=== PATIENT | female | born 1935 | race Caucasian/White ===

== ENCOUNTER → 2020-07-18 | Outpatient (CLI) | payer MEDICARE ==
[2020-07-18 16:06] LABS: BASO # 0.1 (0.0-0.2); BASO % 0.5 % (0.0-2.0); EOS # 0.7 (0.0-0.7); EOS % 6.6 % (0-4.0); GRAN # 6.6 (1.4-6.5); GRAN % 66.6 % (42.2-75.2); HEMATOCRIT 38.8 % (37.0-47.0); HEMOGLOBIN 12.4 g/dl (12.5-16.0); LYMPH # 1.8 (1.2-3.4); LYMPH % 17.7 % (20.0-51.0); MEAN CELL VOLUME 88 fl (80.0-100.0); MEAN CORPUSCULAR HEMOGLOBIN 28 pg (27.0-31.0); MEAN CORPUSCULAR HGB CONC 32 g/dl (33.0-37.0); MEAN PLATELET VOLUME 9.9 fl (7.4-10.4); MONO # 0.8 (0.1-0.6); MONO % 7.9 % (1.7-9.3); PLATELET COUNT 489 K/mm3 (130-400); RED BLOOD COUNT 4.39 M/mm3 (4.10-5.30); REDCELL DISTRIBUTION WIDTH-CV 15.2 % (11.5-14.5)
== END ==
LOC: ZCOL.LAB 15:51
PROVIDERS: Internal Medicine
DX: D64.9 Anemia, unspecified (principal); E03.9 Hypothyroidism, unspecified

== ENCOUNTER → 2020-12-22 | Outpatient (CLI) | payer MEDICARE ==
[2020-12-22 19:54] LABS: COLLECTION METHOD CLEAN CATCH
[2020-12-22 20:32] LABS: MUCOUS Present /lpf; PH 6 (5-8); URINE APPEARANCE Hazy; URINE BACTERIA None Seen /hpf; URINE BILIRUBIN Negative (NEGATIVE); URINE BLOOD Negative (NEGATIVE); URINE COLOR Yellow; URINE GLUCOSE Negative (NEGATIVE); URINE KETONE Negative (NEGATIVE); URINE LEUKOCYTE ESTERASE 2+ (NEGATIVE); URINE NITRATE Negative (NEGATIVE); URINE PROTEIN(semi-quant) Negative (NEGATIVE); URINE RBC 0-2 /hpf; URINE UROBILINOGEN Negative (NEGATIVE)
== END ==
LOC: ZCOL.LAB 18:31
PROVIDERS: Family Medicine
DX: F03.91 Unspecified dementia, unspecified severity, with behavioral disturbance (principal)

== ENCOUNTER → 2021-10-18 | Outpatient (CLI) | payer MEDICARE ==
[2021-10-18 14:50] LABS: COLLECTION METHOD CLEAN CATCH; PH 6 (5-8); URINE APPEARANCE Turbid (CLEAR/HAZY); URINE BACTERIA Moderate /hpf (NONE SEEN); URINE BILIRUBIN Negative (NEGATIVE); URINE BLOOD 1+ (NEGATIVE); URINE COLOR Amber (YELLOW); URINE GLUCOSE Negative (NEGATIVE); URINE KETONE Negative (NEGATIVE); URINE LEUKOCYTE ESTERASE 3+ (NEGATIVE); URINE NITRATE Positive (NEGATIVE); URINE PROTEIN(semi-quant) 1+ (NEGATIVE); URINE RBC 20-50 /hpf (0-2); URINE UROBILINOGEN Negative (NEGATIVE)
== END ==
LOC: ZCOL.LAB 14:35
PROVIDERS: Family Medicine
DX: R82.90 Unspecified abnormal findings in urine (principal)

== ENCOUNTER → 2022-01-18 | Outpatient (CLI) | payer MEDICARE ==
[2022-01-18 20:01] LABS: COLLECTION METHOD CLEAN CATCH
[2022-01-18 20:22] LABS: PH 6 (5-8); SQUAMOUS EPITHELIAL 0-2 /hpf (0-10); URINE APPEARANCE Hazy (CLEAR/HAZY); URINE BACTERIA None Seen /hpf (NONE SEEN); URINE BLOOD Negative (NEGATIVE); URINE COLOR Straw (YELLOW); URINE GLUCOSE Negative (NEGATIVE); URINE KETONE Negative (NEGATIVE); URINE NITRATE Negative (NEGATIVE); URINE PROTEIN(semi-quant) Negative (NEGATIVE); URINE RBC 0-2 /hpf (0-2); URINE UROBILINOGEN Negative (NEGATIVE); URINE WBC >50 /hpf (0-2)
== END ==
LOC: ZCOL.LAB 19:36
PROVIDERS: Internal Medicine
DX: N39.0 Urinary tract infection, site not specified (principal)

== ENCOUNTER → 2023-04-07 | Outpatient (CLI) | payer MEDICARE ==
[2023-04-07 11:11] LABS: BASO # 0.1 K/mm3 (0.0-0.2); BASO % 0.6 % (0.0-2.0); EOS # 0.5 K/mm3 (0.0-0.7); EOS % 5.7 % (0.0-4.0); GRAN # 5.8 K/mm3 (1.4-6.5); GRAN % 66.7 % (42.2-75.2); HEMATOCRIT 40.4 % (37.0-47.0); HEMOGLOBIN 13.1 g/dl (12.5-16.0); LYMPH # 1.7 K/mm3 (1.2-3.4); LYMPH % 19.1 % (20.0-51.0); MEAN CELL VOLUME 99 fl (80.0-100.0); MEAN CORPUSCULAR HEMOGLOBIN 32 pg (27-31); MEAN CORPUSCULAR HGB CONC 32 g/dl (33.0-37.0); MEAN PLATELET VOLUME 10.9 fl (7.4-10.4); MONO # 0.7 K/mm3 (0.1-0.6); MONO % 7.6 % (1.7-9.3); PLATELET COUNT 291 K/mm3 (130-400); RED BLOOD COUNT 4.07 M/mm3 (4.10-5.30); REDCELL DISTRIBUTION WIDTH-CV 12.8 % (11.5-14.5)
[2023-04-07 11:31] LABS: ALBUMIN 3.2 gm/dL (3.4-4.8); BILIRUBIN,TOTAL 0.6 mg/dL (0.2-1.2); CALCIUM 9.2 mg/dL (8.4-10.2); CREATININE, serum 1.14 mg/dL (0.57-1.11); POTASSIUM 4.4 mmol/L (3.5-4.5); TOTAL PROTEIN 6.5 gm/dL (6.2-8.1)
[2023-04-07 11:52] LABS: THYROID STIMULATING HORMONE 1.184 uIU/mL (0.350-4.940)
== END ==
LOC: ZCOL.LAB 11:05
PROVIDERS: Internal Medicine
DX: D50.0 Iron deficiency anemia secondary to blood loss (chronic) (principal); I10 Essential (primary) hypertension; E03.9 Hypothyroidism, unspecified

== ENCOUNTER → 2023-08-05 | Outpatient (REF) | payer MEDICARE ==
[2023-08-05 12:03] LABS: COLLECTION METHOD CLEAN CATCH
[2023-08-05 12:41] LABS: URINE APPEARANCE TURBID (CLEAR/HAZY); URINE BLOOD 2+ (NEGATIVE); URINE COLOR YELLOW (YELLOW); URINE GLUCOSE NEGATIVE (NEGATIVE); URINE KETONE NEGATIVE (NEGATIVE); URINE NITRATE POSITIVE (NEGATIVE); URINE PROTEIN(semi-quant) 2+ (NEGATIVE); URINE UROBILINOGEN 0.2 E.U/dL (0.2-1.0)
[2023-08-05 13:08] LABS: MUCOUS PRESENT (NOT PRESENT); URINE BACTERIA MANY /hpf (NONE SEEN)
[2023-08-05 13:10] LABS: URINE WBC >50 /hpf (0-2)
== END ==
LOC: ZCOL.LAB 10:58
PROVIDERS: Internal Medicine
DX: R39.0 Extravasation of urine (principal)